=== PATIENT | female | born 1940 | race Two or more races ===

== ENCOUNTER → 2020-08-20 | Outpatient (CLI) | payer MEDICARE, BC ==
[~2020-08-20] MED LIST: ATOR10TA PO; CYCL-331 PO; ESCITALOPRAM OX10 MG PO; EXEN2VIA SQ; FLEXERIL; FURO40TA4 PO; INSU100I17 SQ; LISI10TA2 PO; METF10007 PO; METF500T PO; METO50TA29 PO; NORT50CA PO; NORTRIPTYLIN; OMEP20CA16 PO; OXYB5SYR2 PO; PHEN37.5 PO
--- NOTE | 2020-08-20 14:13 | RAD ---
HIP RIGHT 2V WITH PELVIS, LUMBAR SPINE MIN 4V History: Back pain, hip pain Comparison: June 26, 2015 lumbar spine radiographs. Lumbar spine: Findings: 6 views of the lumbar spine are submitted. No acute osseous abnormality is identified by radiographs. There is again posterolateral fusion hardware with bilateral pedicle screws L5-S1 attached to intact vertical rods. There is again minimal grade 1 anterior spondylolisthesis L4-5 and L5-S1, minimal posterior subluxation L2 relative L3. There is again advanced degenerative disc disease L1-L2 and L2-3, to lesser degree at L3-4. There is spondylosis greatest at L1-L2 and L2-3. There is multilevel lumbar facet degenerative change. Lumbar vertebral body stature is maintained. There is scattered plaque of the abdominal aorta. There is very mild dextroscoliosis centered near the thoracolumbar junction. There are again thoracic spinal stimulator leads. There are multiple calcifications of the superior abdomen bilaterally likely due to hepatic and splenic granulomas. There is now small calcification to the right of the spine of uncertain AP location although may be anteriorly located. There is also small calcification in the right superior pelvis not seen previously of uncertain AP location. There is retained stool in the visualized colon. Impression: 1. There is intact posterolateral fusion hardware L5-S1. There is again degenerative disc disease and spondylosis greatest at L2-3 and L1-L2. There is multilevel lumbar facet degenerative change. AP pelvis and right hip radiographs FINDINGS: AP view the pelvis and 2 additional views of the right hip are submitted. No acute fracture or dislocation is identified by radiographs. There are clips in the left pelvis. There is mild osteoarthritic change of the right hip. IMPRESSION: 1.There is mild osteoarthritic change of the right hip. Electronically signed by: Dwain Bains MD (08/20/2020 2:10 PM) [id number]
== END ==
LOC: DXRAD 12:30
PROVIDERS: ATTEND Internal Medicine
DX: M16.11 Unilateral primary osteoarthritis, right hip (principal); M51.36 Other intervertebral disc degeneration, lumbar region; M47.816 Spondylosis without myelopathy or radiculopathy, lumbar region; M43.17 Spondylolisthesis, lumbosacral region; I70.0 Atherosclerosis of aorta
CPT/HCPCS: 72110; 73502

== ENCOUNTER 2020-10-24 15:36 | Emergency (ER) | payer MEDICARE, BC ==
[~2020-10-24] VITALS: Ht 157.5 cm; Wt 102.0 kg
[2020-10-24 15:40] VITALS: BP 108/63
--- NOTE | 2020-10-24 16:06 | PHYS DOC ---
General Adult EDM: Chief Complaint: ALTERED MENTAL STATUS HPI: HPI: History taken patient and son. Patient is a 80-year-old female with a history of diabetes, hypertension, hyperlipidemia, pacemaker dependence who presents with chief complaint of confusion. Patient states her greatest complaint is right hip pain. States she had chronic hip pain in the past and is received pain injections. Denies any new trauma or injury but states it is worsened over the past 2 days. States typically ambulates with a walker. Son regarding concerns of the patient exhibited signs of confusion earlier today. Patient went to get her hair done and the hairdresser noted that the patient seemed more confused with slurred speech. Son also noticed some difficulty in gripping objects with both of her hands earlier this morning. He states her last known well was last night at some time. Denies any formal history of stroke. States that she occasionally gets confused with urinary tract infections. Patient denies any abdominal pain or vomiting. Denies chest pain or shortness breath. Denies headache. Son states she does not take any blood thinners. Patient is alert and oriented x4. Patient states her blood sugars are running approximately 300. Son states his symptoms seem to have been improving throughout the day. He states that the symptoms seemed of started suddenly this morning when she woke up. No other complaints. Review of Systems: Review of Systems: Constitutional: Denies fever or chills Eyes: Denies change in visual acuity HENT: Denies nasal congestion or sore throat Respiratory: Denies cough or shortness of breath Cardiovascular: Denies chest pain or edema GI: Denies abdominal pain, nausea, vomiting, bloody stools or diarrhea : Denies dysuria Musculoskeletal: Positive right hip pain Integument: Denies rash Neurologic: positive for weakness, slurred speech, confusion Endocrine: Denies polyuria or polydipsia Lymphatic: Denies swollen glands Psychiatric: Denies depression or anxiety Physical Exam: PE: Constitutional: Well developed, well nourished, no acute distress, non-toxic appearance. [] HENT: Normocephalic, atraumatic, bilateral external ears normal, oropharynx moist, no oral exudates, nose normal. [] Eyes: PERRLA, EOMI, conjunctiva normal, no discharge. [] Neck: Normal range of motion, no tenderness, supple, no stridor. [] Cardiovascular:Heart rate regular rhythm, no murmur [] Lungs & Thorax: Bilateral breath sounds clear to auscultation [] Abdomen: soft, no tenderness, no masses, no pulsatile masses. [] Skin: Warm, dry, no erythema, no rash. [] Back: No tenderness, no CVA tenderness. [] Extremities: No tenderness, no cyanosis, no clubbing, ROM intact, no edema. [] Neurologic: alert with intact cognitive function. No aphasia, dysarthria, or neglect. GCS 15. Pupils 3 mm briskly reactive b/l. No APD present. Cranial nerves 2-12 grossly intact; no facial asymmetry present, tongue midline, shoulder shrugging strength intact. Strength 5/5 and symmetric throughout. Light touch sensation intact throughout. Cerebellar testing appropriate without evidence of dysdiadochokinesia. DTR's 2+ in all 4 extremities. Negative pronator drift bilaterally. Gait deferred due to hip pain Psychologic: Affect normal, judgement normal, mood normal. [] Current Patient Data: Labs: Laboratory Tests Test 10/24/20 16:00 White Blood Count 9.4 x10^3/uL Red Blood Count 4.32 x10^6/uL Hemoglobin 12.1 g/dL Hematocrit 37.7 % Mean Corpuscular Volume 87 fL Mean Corpuscular Hemoglobin 28 pg Mean Corpuscular Hemoglobin Concent 32 g/dL Red Cell Distribution Width 14.9 % Platelet Count 178 x10^3/uL Neutrophils (%) (Auto) 51 % Lymphocytes (%) (Auto) 39 % Monocytes (%) (Auto) 8 % Eosinophils (%) (Auto) 2 % Basophils (%) (Auto) 1 % Neutrophils # (Auto) 4.7 x10^3uL Lymphocytes # (Auto) 3.6 x10^3/uL Monocytes # (Auto) 0.8 x10^3/uL Eosinophils # (Auto) 0.2 x10^3/uL Basophils # (Auto) 0.1 x10^3/uL Prothrombin Time 10.9 SEC Prothromb Time International Ratio 1.1 Sodium Level 134 mmol/L Potassium Level 4.4 mmol/L Chloride Level 101 mmol/L Carbon Dioxide Level 28 mmol/L Anion Gap 5 Blood Urea Nitrogen 28 mg/dL Creatinine 1.7 mg/dL Estimated GFR (Cockcroft-Gault) 29.1 BUN/Creatinine Ratio 16 Glucose Level 153 mg/dL Calcium Level 9.2 mg/dL Magnesium Level 2.6 mg/dL Total Bilirubin 0.4 mg/dL Aspartate Amino Transf (AST/SGOT) 57 U/L Alanine Aminotransferase (ALT/SGPT) 40 U/L Alkaline Phosphatase 145 U/L Total Protein 7.2 g/dL Albumin 3.2 g/dL Albumin/Globulin Ratio 0.8 Lipase 53 U/L Vital Signs: Vital Signs Date Time Temp Pulse Resp B/P (MAP) Pulse Ox O2 Delivery O2 Flow Rate FiO2 10/24/20 15:40 97.8 60 16 108/63 (78) 91 Room Air EKG: EKG: EKG consistent with ventricular paced rhythm. Ventricular rate 60 bpm. [place] normal. No acute ischemic changes noted. [] Radiology/Procedures: Radiology/Procedures: [address] [address] IMAGING REPORT Signed PATIENT: ALEICA ADAMES FACCOUNT: [id number] : 1940 LOCATION: ER AGE: 80 SEX: F EXAM STATUS: REG ER ORD. PHYSICIAN: SAAD MELENDEZ DO REASON: confusion, outbound sales specialist weakness b/l PROCEDURE: CT HEAD WO CONTRAST CT HEAD/BRAIN WO Date: 10/24/2020 4:15 PM Clinical Indication: Reason: confusion, outbound sales specialist weakness b/l / Spl. Instructions: / History: Comparison: None. Technique: 5 mm axial tomographic images were obtained of the head without contrast. These were viewed on brain and bone windows. One or more of the following dose reduction techniques were utilized: Automated exposure control (A EC), Adjustment of mA and/or kV according to patient size, Use of iterative reconstruction technique such as ASiR, CT scan done according to ALARA and image gently/image wisely Findings: Mild generalized cerebral and cerebellar volume loss. Mild nonspecific periventricular hypoattenuation, most commonly seen with chronic small vessel ischemic disease. Calcified atherosclerosis of the bilateral cavernous and paraclinoid internal carotid arteries and intracranial vertebral arteries. No intra- or extra-axial mass or fluid collection. No acute hemorrhage. The ventricles are normal in size, shape, and morphology. The grey-white matter junction is normal. The subarachnoid cisterns are patent. The visualized paranasal sinuses are normal. The visualized portions of the orbits and globes are normal. The mastoid air cells are clear. The corporate coordinator topogram shows no lytic lesion or fracture. Impression: No acute intracranial process. Mild cerebral volume loss. Mild chronic small vessel ischemic disease. Electronically signed by: Isrrael Mclean MD (10/24/2020 4:37 PM) [facility] DICTATED AND SIGNED BY: ISRRAEL MCLEAN MD DATE: 10/24/201632 CC: SAAD MELENDEZ DO; ALEXIS TAPIA MD ~MTH0 0 [] Heart Score: Risk Factors: Risk Factors: DM, Current or recent (<one month) smoker, HTN, HLP, family history of CAD, obesity. Risk Scores: Score 0 - 3: 2.5% MACE over next 6 weeks - Discharge Home Score 4 - 6: 20.3% MACE over next 6 weeks - Admit for Clinical Observation Score 7 - 10: 72.7% MACE over next 6 weeks - Early Invasive Strategies Course & Med Decision Making: Course & Med Decision Making Pertinent Labs and Imaging studies reviewed. (See chart for details) [] Patient is a 80-year-old female who presents with a chief complaint of confusion that began sometime early this morning. Last known well unclear. Initial NIH score for me 0. She is alert and oriented x4. CT head was obtained and was grossly unremarkable. Basic labs were obtained were also unremarkable. Urinalysis without evidence of infection. I did discuss results of labs imaging great detail with the patient and son at bedside. I did encourage hospitalization for potential central neurologic etiology including but not limited to CVA versus TIA. This also could be related to polypharmacy. No o vert signs of urinary tract infection therefore antibiotics were deferred. Patient would prefer to be discharged home with outpatient follow-up. I did explain that we cannot fully exclude central neurologic cause of her symptoms without hospitalization and subsequent testing. She did express understanding. She is alert and oriented x4. No deficits are present currently. She has been understanding of her risk of kidney as well as potential consequences. Son also feels comfortable taking her home. Return precautions discussed and understood. Utilizing shared decision making patient be discharged home for further care. Susan Disclaimer: Susan Disclaimer: This electronic medical record was generated, in whole or in part, using a voice recognition dictation system. Departure Departure: Impression: Primary Impression: Weakness Disposition: 01 DC HOME SELF CARE/HOMELESS Condition: STABLE Referrals: ALEXIS TAPIA MD (PCP) Patient Instructions: Ischemic Stroke, Opiate Dependence, Transient Ischemic Attack Additional Instructions: Please return the emergency department at any time should you want to be reevaluated. Please follow-up with her primary care physician in the next 2 to 3 days. NIHSS - ED NIH Stroke Scale: NIH Stroke Scale Response (Comments) Value Level of Consciousness: 0 Alert/Responsive 0 LOC Questions: 0 Answers both correctly 0 LOC Commands: 0 Performs both tasks 0 Best Gaze: 0 Normal 0 Visual: 0 No visual loss 0 Facial Palsy: 0 Normal, symmetrical 0 Motor - Left Arm 0 No drift 0 Motor - Right Arm 0 No drift 0 Motor - Left Leg 0 No drift 0 Motor: Right Leg 0 No drift 0 Limb Ataxia: 0 Absent 0 Sensory: 0 No loss 0 Best Language: 0 Normal 0 Dysathria: 0 Normal 0 Extinction and Inattention: 0 Normal 0 Total 0 SAAD MELENDZE DO Oct 24, 2020 16:06
--- NOTE | 2020-10-24 16:13 | EKG ---
[address] [address] Test Date: 2020-10-24 Test Time: 16:08:18 Pat Name: ALECIA ADAMES Department: Room: Gender: F Laundry Aid: SAMREEN : 1940 Requested By: SAAD MELENDEZ Order Number: [id number] Reading MD: Measurements Intervals [place] Rate: 60 P: GA: QRS: 71 QRSD: 176 T: 213 QT: 484 QTc: 489 Interpretive Statements IRREGULAR RHYTHM, NO P-WAVE FOUND LEFT BUNDLE BRANCH BLOCK ABNORMAL ECG RI6.02 No previous ECG available for comparison
[2020-10-24 16:35] LABS: BASO # 0.1 x10^3/uL (0.0-0.2); BASO % 1 % (0-3); EOS # 0.2 x10^3/uL (0.0-0.7); EOS % 2 % (0-3); HEMATOCRIT 37.7 % (36.0-47.0); HEMOGLOBIN 12.1 g/dL (12.0-15.5); LYMPH # 3.6 x10^3/uL (1.0-4.8); LYMPH % 39 % (24-48); MEAN CORPUSCULAR HEMOGLOBIN 28 pg (25-35); MEAN CORPUSCULAR HGB CONC 32 g/dL (31-37); MEAN CORPUSCULAR VOLUME 87 fL (79-100); MONO # 0.8 x10^3/uL (0.0-1.1); MONO % 8 % (0-9); NEUT # 4.7 x10^3uL (1.8-7.7); NEUT % 51 % (31-73); PLATELET COUNT 178 x10^3/uL (140-400); RED BLOOD COUNT 4.32 x10^6/uL (3.50-5.40); RED CELL DISTRIBUTION WIDTH 14.9 % (11.5-14.5); WHITE BLOOD COUNT 9.4 x10^3/uL (4.0-11.0)
--- NOTE | 2020-10-24 16:40 | RAD ---
CT HEAD/BRAIN WO Date: 10/24/2020 4:15 PM Clinical Indication: Reason: confusion, supervisor refining weakness b/l / Spl. Instructions: / History: Comparison: None. Technique: 5 mm axial tomographic images were obtained of the head without contrast. These were view ed on brain and bone windows. One or more of the following dose reduction techniques were utilized: A utomated exposure control (AEC), Adjustment of mA and/or kV according to patient size, Use of iterati ve reconstruction technique such as ASiR, CT scan done according to ALARA and image gently/image edwards ly Findings: Mild generalized cerebral and cerebellar volume loss. Mild nonspecific periventricular hypoattenuatio n, most commonly seen with chronic small vessel ischemic disease. Calcified atherosclerosis of the bi lateral cavernous and paraclinoid internal carotid arteries and intracranial vertebral arteries. No intra- or extra-axial mass or fluid collection. No acute hemorrhage. The ventricles are normal in size, shape, and morphology. The grey-white matter junction is normal. The subarachnoid cisterns are patent. The visualized paranasal sinuses are normal. The visualized portions of the orbits and globes are no rmal. The mastoid air cells are clear. The maitre d' topogram shows no lytic lesion or fracture. Impression: No acute intracranial process. Mild cerebral volume loss. Mild chronic small vessel ischemic disease. Electronically signed by: Dwain Mclean MD (10/24/2020 4:37 PM) [facility]
[2020-10-24 16:41] LABS: CALCIUM 9.2 mg/dL (8.5-10.1); CREATININE 1.7 mg/dL (0.6-1.0); GFR 29.1; POTASSIUM 4.4 mmol/L (3.5-5.1)
--- NOTE | 2020-10-24 16:44 | RAD ---
XR CHEST 1V History: Reason: weakness / Spl. Instructions: / History: Comparison: January 24, 2013 Findings: Low lung volumes with central opacities. Hazy opacities bilaterally likely related to overlying struc tures. No pleural effusion. No pneumothorax. Normal heart size. Left-sided pacemaker. Impression: 1. Low lung volumes with central opacities, likely related to atelectasis. If persistent clinical co ncern, PA and lateral view of the chest can better assess. Electronically signed by: Nickolas Segura DO (10/24/2020 4:41 PM) [id number]
[2020-10-24 16:45] LABS: ALBUMIN 3.2 g/dL (3.4-5.0); ALBUMIN/GLOBULIN RATIO 0.8 (1.0-1.7); MAGNESIUM 2.6 mg/dL (1.8-2.4); TOTAL BILIRUBIN 0.4 mg/dL (0.2-1.0); TOTAL PROTEIN 7.2 g/dL (6.4-8.2)
[2020-10-24 17:42] LABS: BILIRUBIN,URINE NEG (NEG); CLARITY,URINE CLEAR; COLOR,URINE YELLOW; GLUCOSE,URINE NEG (NEG); NITRITE,URINE NEG (NEG); RBC,URINE 0 /HPF (0-2); UROBILINOGEN,URINE 0.2 mg/dL (0.2 mg/dL)
[2020-10-24 17:43] LABS: BACTERIA,URINE 0 /HPF (0-FEW); SQUAMOUS EPITHELIAL CELL,UR FEW /LPF
[2020-10-24] MEDS ORDERED: oxyCODONE ER 20 MG TAB.ER.12H PO ONE (18:00)
[2020-10-24] MEDS ORDERED: oxyCODONE IR 5 MG TABLET PO ONE (18:15)
== END 2020-10-24 18:29 | disposition home or self-care (01) ==
LOC: ER 15:36
DX: R53.1 Weakness (principal); R41.0 Disorientation, unspecified; M25.551 Pain in right hip; G89.29 Other chronic pain; R47.81 Slurred speech; E11.9 Type 2 diabetes mellitus without complications; I10 Essential (primary) hypertension; E78.5 Hyperlipidemia, unspecified; I67.89 Other cerebrovascular disease; Z95.0 Presence of cardiac pacemaker
CPT/HCPCS: 36415; 70450; 71045; 80053; 81001; 83690; 83735; 85025; 85610; 87086; 93005; 99285-25

== ENCOUNTER → 2021-09-05 | Outpatient (CLI) | payer MEDICARE, BC ==
[~2021-09-05] MED LIST changes: -CYCL-331 PO; +CYCL10TA19 PO; +LISI10TA16 PO; -LISI10TA2 PO; -PHEN37.5 PO; +PHEN37.59 PO
--- NOTE | 2021-09-08 15:58 | RAD ---
INDICATION : Routine Screening. COMPARISON: Priors including August 2018 TECHNIQUE: Standard mammogram screening views of the bilateral breasts were obtained with 3D tomosynt hesis. CAD was utilized. FINDINGS: The breasts are scattered density. No definite suspicious mass. IMPRESSION: BI-RADS Category 2: Benign findings. The patient was placed into the recall system with a suggested recall date for follow up imaging. Mammography is the most sensitive method for finding small breast cancers, but it does not detect the m all and is not a substitute for careful clinical examination. A negative mammogram does not negate a clinically suspicious finding and should not result in delay in biopsying a clinically suspicious abnormality. Electronically signed by: Sin Zeng MD (09/08/2021 3:55 PM) [id number]
== END ==
LOC: MAMMO 10:14
PROVIDERS: ATTEND Internal Medicine
DX: Z12.31 Encounter for screening mammogram for malignant neoplasm of breast (principal)
CPT/HCPCS: 77063; 77067

== ENCOUNTER 2021-12-07 16:26 | Emergency (ER) | payer MEDICARE, BC ==
[~2021-12-07] VITALS: Ht 157.5 cm; Wt 102.0 kg
[2021-12-07 16:26] VITALS: BP 155/59
--- NOTE | 2021-12-07 17:20 | PHYS DOC ---
Past History Past Medical History: Diabetes, Hypertension, Other Additional Past Medical Histor: chronic pain Past Surgical History: Cholecystectomy, Hysterectomy Alcohol Use: None General Adult EDM: Chief Complaint: URINARY RETENTION HPI: HPI: 81-year-old female presents with urinary retention. Patient has been unable to urinate today. She was able to get a small amount of urine out just before coming to the emergency room. She has low abdominal pressure. She has not had urinary retention problems in the past. She denies any other symptoms at this time. Review of Systems: Review of Systems: Constitutional: Denies fever or chills Eyes: Denies change in visual acuity HENT: Denies nasal congestion or sore throat Respiratory: Denies cough or shortness of breath Cardiovascular: Denies chest pain or edema GI: Suprapubic abdominal pain. Denies nausea, vomiting, bloody stools or diarrhea : Urinary retention Musculoskeletal: Denies back pain or joint pain Integument: Denies rash Neurologic: Denies headache, focal weakness or sensory changes Endocrine: Denies polyuria or polydipsia Lymphatic: Denies swollen glands Psychiatric: Denies depression or anxiety Allergies: Allergies: Allergies Coded Allergies Type Severity Reaction Last Updated Verified No Known Drug Allergies 10/24/20 No Physical Exam: PE: Constitutional: Well developed, well nourished, morbidly obese, no acute distress, non-toxic appearance. [] HENT: Normocephalic, atraumatic, bilateral external ears normal, oropharynx moist, no oral exudates, nose normal. [] Eyes: PERRLA, EOMI, conjunctiva normal, no discharge. [] Neck: Normal range of motion, no tenderness, supple, no stridor. [] Cardiovascular: Heart rate regular rhythm, no murmur [] Lungs & Thorax: Bilateral breath sounds clear to auscultation [] Abdomen: Bowel sounds normal, soft, suprapubic tenderness, no masses, no pulsatile masses. [] Skin: Warm, dry, no erythema, no rash. [] Back: No tenderness, no CVA tenderness. [] Extremities: No tenderness, no cyanosis, no clubbing, ROM intact, no edema. [] Neurologic: Alert and oriented X 3, normal motor function, normal sensory function, no focal deficits noted. [] Psychologic: Affect normal, judgement normal, mood normal. [] Current Patient Data: Vital Signs: Vital Signs Date Time Temp Pulse Resp B/P (MAP) Pulse Ox O2 Delivery O2 Flow Rate FiO2 12/07/21 16:26 98.5 60 16 155/59 (91) 97 Room Air EKG: EKG: [] Radiology/Procedures: Radiology/Procedures: [] Heart Score: C/O Chest Pain: N/A Risk Factors: Risk Factors: DM, Current or recent (<one month) smoker, HTN, HLP, family history of CAD, obesity. Risk Scores: Score 0 - 3: 2.5% MACE over next 6 weeks - Discharge Home Score 4 - 6: 20.3% MACE over next 6 weeks - Admit for Clinical Observation Score 7 - 10: 72.7% MACE over next 6 weeks - Early Invasive Strategies Course & Med Decision Making: Course & Med Decision Making Pertinent Labs and Imaging studies reviewed. (See chart for details) Drained the patient's bladder with a catheter. The patient's urinalysis is negative for infection. The patient would like her catheter removed prior to discharge. I believe this is reasonable. If she has further difficulty she is welcome to come back to the emergency room. She will follow-up with her primary doctor as needed. She is stable for discharge at this time. [] Dragon Disclaimer: Dragon Disclaimer: This electronic medical record was generated, in whole or in part, using a voice recognition dictation system. Departure Departure: Impression: Primary Impression: Urinary retention Disposition: HOME / SELF CARE / HOMELESS Condition: STABLE Referrals: ALEXIS TAPIA MD (PCP) Patient Instructions: Urinary Retention, Acute, Female, [id number] ANGELITO HATCH DO Dec 07, 2021 17:20
[2021-12-07 17:36] LABS: BACTERIA,URINE 0 /HPF (0-FEW); BILIRUBIN,URINE NEG (NEG); CLARITY,URINE CLEAR; COLOR,URINE YELLOW; GLUCOSE,URINE NEG (NEG); NITRITE,URINE NEG (NEG); RBC,URINE 0 /HPF (0-2); UROBILINOGEN,URINE 0.2 mg/dL (0.2 mg/dL); WBC,URINE 0 /HPF (0-4)
== END 2021-12-07 18:05 | disposition home or self-care (01) ==
LOC: ER 16:26
DX: R33.9 Retention of urine, unspecified (principal); R10.30 Lower abdominal pain, unspecified; E11.9 Type 2 diabetes mellitus without complications; I10 Essential (primary) hypertension; G89.29 Other chronic pain; Z90.49 Acquired absence of other specified parts of digestive tract; Z90.710 Acquired absence of both cervix and uterus
CPT/HCPCS: 51702; 81001; 99284

== ENCOUNTER → 2022-01-05 | Outpatient (CLI) | payer MEDICARE, BC ==
[2021-12-07 16:26] VITALS: BP 155/59
--- NOTE | 2022-01-05 18:06 | RAD ---
XR SACRUM AND COCCYX 2+VIEWS, XR LUMBAR SPINE 2-3V, XR PELVIS 1-2V Clinical Indication: Reason: LOW BACK PAIN, TAILBONE and buttocks PAIN, FALL / Spl. Instructions: / History: Comparison: Lumbar spine August 20, 2020. Findings: Spinal stimulator leads are redemonstrated, terminating at the level of T7. There is right gluteal ba ttery pack. There is mild right convexity thoracolumbar scoliosis. There is degenerative spondylosis of the lumbar spine. There is stable posterior fusion hardware of L5-S1. There is minimal grade 1 ant erolisthesis of L4 on L5. There is mild grade 1 retrolisthesis of L2 on L3. There is multilevel disc space narrowing and reactive endplate changes. No acute fracture is seen. Moderate arterial calcifica tions. No acute pelvic fracture is identified. There is mild arthropathy of the bilateral hips. No diastasis of symphysis pubis. The sacroiliac joints appear symmetric. There are left pelvic surgical clips. The sacral arcuate lines are not well seen due to overlying air and stool in colon. No acute displace d fracture of the sacrum or coccyx is identified. IMPRESSION: 1. No acute fracture is identified. 2. Moderate spondylosis of the lumbar spine. Electronically signed by: Richard Berry MD (01/05/2022 6:04 PM) [facility]
== END ==
LOC: RAD 16:23
PROVIDERS: ATTEND Internal Medicine
DX: M47.816 Spondylosis without myelopathy or radiculopathy, lumbar region (principal); M41.85 Other forms of scoliosis, thoracolumbar region; I70.90 Unspecified atherosclerosis; M43.16 Spondylolisthesis, lumbar region; M48.061 Spinal stenosis, lumbar region without neurogenic claudication; M12.852 Other specific arthropathies, not elsewhere classified, left hip; M12.851 Other specific arthropathies, not elsewhere classified, right hip; M53.3 Sacrococcygeal disorders, not elsewhere classified; Z98.1 Arthrodesis status; W18.2XXD Fall in (into) shower or empty bathtub, subsequent encounter
CPT/HCPCS: 72100; 72170; 72220

== ENCOUNTER → 2022-01-27 | Outpatient (CLI) | payer MEDICARE, BC ==
--- NOTE | 2022-01-27 14:45 | RAD ---
PQRS Compliance Statement: One or more of the following individualized dose reduction techniques were utilized for this examinat ion: 1. Automated exposure control 2. Adjustment of the mA and/or kV according to patient size 3. Use of iterative reconstruction technique CT LUMBAR SPINE 01/27/2022 12:05 PM Indication: Right-sided radiculopathy, fall one week ago COMPARISON: CT lumbar spine 02/16/2012 TECHNIQUE: Multiple axial CT images of the lumbar spine were obtained with intravenous contrast. Goran nal and sagittal reformats are provided. FINDINGS: There is posterior and interbody fusion at L5-S1, similar to prior examination. There is no significa nt lucency surrounding the hardware. There is 3 mm retrolisthesis of L1 on L2. There is 6 mm retrolis thesis of L2 on L3. There is 3 mm retrolisthesis of L3 on L4. Vacuum disc phenomenon identified at T1 2-L1, L1-L2, L2-L3, L3-L4 and L4-L5. Moderate to advanced disc height loss at L1-L2. Mild to moderate disc height loss at L2-L3: Mild disc height loss at L3-L4. Endplate sclerosis identified at L1-L2, L 2-L3 and L3-L4. There is S-shaped scoliosis with dextroconvex curvature at L1-L2 and levoconvex curva ture L3-L4. T12-L1: There is a posterior disc osteophyte complex with calcified left central disc protrusion. Mod erate left and moderate facet arthropathy. Moderate left and moderate right neuroforaminal stenosis. Mild spinal canal stenosis. L1-L2: There is a posterior disc osteophyte complex with calcified left central disc protrusion exten ding into the left subarticular recess. There is left lateral recess stenosis. Moderate left and mode rate facet arthropathy. Severe left and mild right neuroforaminal stenosis. Mild to moderate spinal c anal stenosis. Findings are similar to the prior examination. L2-L3: There is a posterior disc osteophyte complex with calcified right foraminal disc protrusion. T here is severe right and moderate left facet arthropathy. Severe right and moderate left neuroforamin al stenosis. No neuroforaminal stenosis is progressed. Moderate spinal canal stenosis, progressed. L3-L4: There is a posterior disc osteophyte complex. Severe right and moderate left facet arthropathy . Moderate right and mild left neuroforaminal stenosis. Moderate spinal canal stenosis. Findings have progressed. L4-L5: There is a posterior disc osteophyte complex with calcified central disc protrusion. Severe fa cet arthropathy. Severe right and moderate left neuroforaminal stenosis. Mild/moderate spinal canal s tenosis. Findings have progressed since the prior examination. L5-S1: This level is fused. IMPRESSION: Moderate to advanced lumbar spondylosis as described in detail above. Posterior fusion at L5-S1 witho ut findings of hardware failure. Electronically signed by: Maday Lema MD (01/27/2022 2:43 PM) PABLO
== END ==
LOC: CT 11:45
PROVIDERS: ATTEND Internal Medicine
DX: M47.26 Other spondylosis with radiculopathy, lumbar region (principal); M51.26 Other intervertebral disc displacement, lumbar region; M48.8X6 Other specified spondylopathies, lumbar region; M48.061 Spinal stenosis, lumbar region without neurogenic claudication; M25.78 Osteophyte, vertebrae; M41.86 Other forms of scoliosis, lumbar region; M43.16 Spondylolisthesis, lumbar region; M43.8X6 Other specified deforming dorsopathies, lumbar region; Z98.1 Arthrodesis status
CPT/HCPCS: 72131

== ENCOUNTER → 2022-03-12 | Outpatient (CLI) | payer MEDICARE, BC ==
[2022-03-12 10:54] VITALS: BP 119/56
--- NOTE | 2022-03-12 20:36 | RAD ---
Left hip 2 views: Reason for examination: Chronic pain. Comparison is made to previous pelvic x-ray dated 08/20/2020. No acute fracture or dislocation is seen. The bone density is normal. No abnormal periosteal reaction is seen. Joint spaces are maintained. No gross abnormality seen in the visualized portion of the pel vis. Postop changes are again seen in the lumbosacral spine. IMPRESSION: No acute abnormality evident at the left hip. Electronically signed by: Chantelle Manzo MD (03/12/2022 8:33 PM) [facility]
== END ==
LOC: RAD 11:41
PROVIDERS: ATTEND Anesthesiology
DX: M25.552 Pain in left hip (principal); Z98.890 Other specified postprocedural states
CPT/HCPCS: 73502

== ENCOUNTER → 2022-03-12 | Day surgery (SDC) | payer MEDICARE, BC ==
[2022-03-12 10:54] VITALS: BP 119/56
== END | disposition home or self-care (01) ==
LOC: SURG 10:47
PROVIDERS: ATTEND Anesthesiology
DX: M54.16 Radiculopathy, lumbar region (principal); I10 Essential (primary) hypertension; I48.91 Unspecified atrial fibrillation; E11.9 Type 2 diabetes mellitus without complications; E07.9 Disorder of thyroid, unspecified; G47.30 Sleep apnea, unspecified; E78.5 Hyperlipidemia, unspecified; M96.1 Postlaminectomy syndrome, not elsewhere classified; Z90.710 Acquired absence of both cervix and uterus; Z79.4 Long term (current) use of insulin; Z79.899 Other long term (current) drug therapy; Z98.890 Other specified postprocedural states; Z90.49 Acquired absence of other specified parts of digestive tract; Z95.0 Presence of cardiac pacemaker
CPT/HCPCS: 99204; G0463

== ENCOUNTER → 2022-03-25 | Day surgery (SDC) | payer MEDICARE, BC ==
[2022-03-25 10:45] VITALS: BP 142/80
== END | disposition home or self-care (01) ==
LOC: SURG 10:36
PROVIDERS: ATTEND Anesthesiology
DX: M54.16 Radiculopathy, lumbar region (principal); M96.1 Postlaminectomy syndrome, not elsewhere classified; E66.9 Obesity, unspecified; I10 Essential (primary) hypertension; I48.91 Unspecified atrial fibrillation; E11.9 Type 2 diabetes mellitus without complications; G47.30 Sleep apnea, unspecified; E07.9 Disorder of thyroid, unspecified; Z90.710 Acquired absence of both cervix and uterus; Z98.890 Other specified postprocedural states; Z79.82 Long term (current) use of aspirin; Z79.899 Other long term (current) drug therapy; Z79.4 Long term (current) use of insulin; Z95.0 Presence of cardiac pacemaker
CPT/HCPCS: 99214; G0463

== ENCOUNTER → 2022-04-03 | Outpatient (CLI) | payer MEDICARE, BC ==
[2022-03-25 10:45] VITALS: BP 142/80
== END ==
LOC: EKG 10:18
PROVIDERS: ATTEND Nurse Practitioner Family
DX: Z01.818 Encounter for other preprocedural examination (principal)
CPT/HCPCS: 93005